=== PATIENT | female | born 1990 | race Caucasian/White ===

== ENCOUNTER → 2018-08-28 | Outpatient (CLI) | payer BC ==
[~2018-08-28] MED LIST: GADOBUTROL 10 MMOL/10 ML VIAL IV ONE; NORE1TAB26 PO; OXYC1TAB22 PO; RIZA10TA PO; SERT25TA PO; TIZA4TAB PO; TRAM200C4 PO
--- NOTE | 2018-08-28 18:01 | KCIC ---
MRI of the Brain without and with Contrast 08/28/2018 Clinical History: Pressure behind eyes. Visual changes. Technique: Unenhanced T1-weighted sagittal and axial and FLAIR, T2-weighted and diffusion-weighted axial images of the brain were obtained. After the intravenous administration of 6 cc of Gadavist, enhanced T1-weighted axial and coronal images of the brain were obtained. Findings: The ventricles and sulci are within normal limits in size and configuration. No area of significant abnormal signal intensity is seen involving the brain parenchyma. No abnormal area of contrast enhancement is seen. No extra-axial fluid collection is noted. There is no MRI evidence of acute ischemia/infarction. The orbits are within normal limits. The paranasal sinuses are essentially clear. Normal flow voids are seen within the major vascular structures surrounding the brain parenchyma. Impression: Negative study. Electronically signed by: Adrien Machado MD (08/28/2018 5:57 PM) [id number]
--- NOTE | 2018-08-28 18:09 | KCIC ---
MRV of the head without and with contrast 08/28/2018 CLINICAL HISTORY: Papilledema. Visual changes. Increased pressure behind eyes. TECHNIQUE: Using 2-D and 3-D [id number] techniques, a MRV of the head was performed without and with the use of intravenous contrast. 6 cc of Gadavist were administered intravenously during this examination. FINDINGS: Comparison is made to the patient's MRI of the brain performed concurrently with this examination. Images from the study are degraded by patient motion. The superior sagittal sinus, inferior sagittal sinus, vein of Roland, straight sinus, transverse sinuses, sigmoid sinuses and jugular bulbs are patent. Asymmetry of the transverse sinuses, right greater than left is seen. This is a normal variation., No filling defect is seen. There is no evidence of dural venous sinus thrombosis. IMPRESSION: Negative study. Electronically signed by: Adrien Machado MD (08/28/2018 6:05 PM) [id number]
== END | disposition home or self-care (01) ==
LOC: KCIC MRI 14:44
DX: H47.10 Unspecified papilledema (principal)
CPT/HCPCS: 70546; 70553; A9585